=== PATIENT | female | born 1970 | race Caucasian/White ===

== ENCOUNTER 2017-02-12 06:42 | Emergency (ER) | payer OTHER ==
[~2017-02-12] VITALS: Ht 157.5 cm; Wt 66.2 kg
[2017-02-12] MEDS ORDERED: IPRATRPIUM/ALBUTEROL 0.5/2.5MG 3 ML NEBU. NEB ONE (07:15)
[2017-02-12] MEDS ORDERED: predniSONE 20 MG TABLET PO ONE (07:15)
--- NOTE | 2017-02-12 07:15 | PHYS DOC ---
Past Medical History Past Medical History: Asthma, Bronchitis Past Surgical History: Other Additional Past Surgical Histo: R. KNEE Additional Information: 1 PPD Alcohol Use: Occasionally Drug Use: None Adult General Chief Complaint Chief Complaint: SHORTNESS OF BREATH HPI HPI Patient is a 46 year old female who presents with cough, sob. Pt stated she had a fever on Friday, resolved on Friday and then developed a cough. No associated pain, reports she has "bronchitis" and would normally use an inhaler but is out because she recently moved here. Does not currently have PCP. She took an oral bronchodilator prior to arrival without relief. Review of Systems Review of Systems Constitutional: Denies chills [] Eyes: Denies change in visual acuity, redness, or eye pain [] HENT: Denies nasal congestion or sore throat [] Respiratory: per hpi Cardiovascular: Denies chest pain GI: Denies abdominal pain, nausea, vomiting, bloody stools or diarrhea [] : Denies dysuria or hematuria [] Musculoskeletal: Denies back pain or joint pain [] Integument: Denies rash or skin lesions [] Neurologic: Denies headache, focal weakness or sensory changes [] Current Medications Current Medications Current Medications Medications (Trade) Dose Ordered Sig/Asuncion Start Time Stop Time Status Last Admin Dose Admin Albuterol/ Ipratropium (Duoneb) 3 ml 1X ONCE 02/12/17 07:15 02/12/17 07:16 DC 02/12/17 07:40 3 ML Prednisone (Prednisone) 60 mg 1X ONCE 02/12/17 07:15 02/12/17 07:16 DC 02/12/17 07:17 60 MG Allergies Allergies Allergies Coded Allergies Type Severity Reaction Last Updated Verified No Known Drug Allergies 02/12/17 No Physical Exam Physical Exam Constitutional: Well developed, well nourished, no acute distress, non-toxic appearance. talks in full sentences HENT: Normocephalic, atraumatic, bilateral external ears normal, oropharynx moist, no oral exudates, nose normal. [] Eyes: PERRLA, EOMI, conjunctiva normal, no discharge. [] Neck: Normal range of motion, no tenderness, supple, no stridor. [] Cardiovascular:Heart rate slightly tachy with regular rhythm, no murmur [] Lungs & Thorax: Bilateral breath sounds , moderate air movement, insp/exp wheeze Abdomen: Bowel sounds normal, soft, no tenderness, no masses, no pulsatile masses. [] Skin: Warm, dry, no erythema, no rash. [] Back: No tenderness, no CVA tenderness. [] Extremities: No tenderness, no cyanosis, no clubbing, ROM intact, no edema, nontender Neurologic: Alert and oriented X 3, normal motor function, normal sensory function, no focal deficits noted. [] Psychologic: Affect normal, judgement normal, mood normal. [] Current Patient Data Vital Signs Vital Signs Date Time Temp Pulse Resp B/P (MAP) Pulse Ox O2 Delivery O2 Flow Rate FiO2 02/12/17 08:13 89 18 148/66 (93) 95 Room Air 02/12/17 06:55 98.2 98.2 EKG EKG [] Radiology/Procedures Radiology/Procedures Examination: 2 views of the right tibia and fibula History: History of fall down stairs, pain for 2 days Comparison: None available Findings: The alignment of the tibia and fibula grossly appears unremarkable. There is no obvious acute fracture identified. Impression: no acute osseous findings [] Course & Med Decision Making Course & Med Decision Making Pertinent Labs and Imaging studies reviewed. (See chart for details) pt given prednisone, duoneb breathing treatment, CXR performed. Pt feeling much improved, SOB resolved. CXR neg for pna. DC'd with 4 more days of prednisone and albuterol inhaler with spacer. Referral sheet given. Anabelle Disclaimer Anabelle Disclaimer This electronic medical record was generated, in whole or in part, using a voice recognition dictation system. Departure Departure Impression: Primary Impression: Bronchospasm with bronchitis, acute Disposition: HOME, SELF-CARE Condition: STABLE Referrals: NO PCP (PCP) Scripts Albuterol Sulfate (PROAIR HFA INHALER) 8.5 Gm Hfa.aer.ad 2 PUFF INH PRN Q6HRS Y for SHORTNESS OF BREATH, #1 INHALER 0 Refills with spacer Prov: MEAGAN TOBIAS MD 02/12/17 Prednisone (PREDNISONE) 50 Mg Tablet 1 TAB PO DAILY, #4 TAB starting tomorrow Prov: MEAGAN TOBIAS MD 02/12/17 MEAGAN TOBIAS MD February 12, 2017 07:15
--- NOTE | 2017-02-12 07:15 | RAD ---
Chest, 2 views, 02/12/2017: History: Cough and shortness of breath The heart size and pulmonary vascularity are normal. No pulmonary infiltrates are seen. There is no evidence of pleural fluid. IMPRESSION: No acute cardiopulmonary abnormality is detected.
[2017-02-12 08:13] VITALS: BP 148/66
[2017-02-12] MEDS ORDERED: PRED50TA PO (08:21)
[2017-02-12] MEDS ORDERED: PROAIR HFA8.5 GM INH (08:21)
== END 2017-02-12 08:30 | disposition home or self-care (01) ==
LOC: ER 06:42
DX: J20.9 Acute bronchitis, unspecified (principal); J45.909 Unspecified asthma, uncomplicated; F17.200 Nicotine dependence, unspecified, uncomplicated
CPT/HCPCS: 71020; 94250; 94640; 99284; J7512; J7620

== ENCOUNTER 2017-11-23 14:05 | Emergency (ER) | payer OTHER | END 2017-11-23 15:58 | disposition home or self-care (01) | LOC: ER 14:05 | DX: S52.021A Displaced fracture of olecranon process without intraarticular extension of right ulna, initial encounter for closed fracture (principal); J45.909 Unspecified asthma, uncomplicated; X58.XXXA Exposure to other specified factors, initial encounter; Y93.89 Activity, other specified; Y92.89 Other specified places as the place of occurrence of the external cause; Y99.8 Other external cause status | CPT/HCPCS: 29105; 73080; 99284-25 ==

== ENCOUNTER 2019-03-11 01:37 | Emergency (ER) | payer SELFPAY ==
[~2019-03-11] VITALS: Ht 157.5 cm; Wt 68.0 kg
[~2019-03-11 01:37] MED LIST: ALBU2.5V8 INH; PRED50TA PO
[2019-03-11 01:53] LABS: BASO % 0 % (0-3); EOS % 0 % (0-3); HEMATOCRIT 46.4 % (36.0-47.0); HEMOGLOBIN 15.5 g/dL (12.0-15.5); LYMPH # 1.9 x10^3/uL (1.0-4.8); LYMPH % 13 % (24-48); MEAN CORPUSCULAR HEMOGLOBIN 30 pg (25-35); MEAN CORPUSCULAR HGB CONC 33 g/dL (31-37); MEAN CORPUSCULAR VOLUME 90 fL (79-100); MONO # 0.9 x10^3/uL (0.0-1.1); MONO % 7 % (0-9); NEUT # 11.6 x10^3uL (1.8-7.7); NEUT % 80 % (31-73); PLATELET COUNT 326 x10^3/uL (140-400); RED BLOOD COUNT 5.13 x10^6/uL (3.50-5.40); RED CELL DISTRIBUTION WIDTH 14.1 % (11.5-14.5); WHITE BLOOD COUNT 14.5 x10^3/uL (4.0-11.0)
[2019-03-11] MEDS ORDERED: methylPREDNISolone SOD SUCC PF 125 MG/2 ML VIAL. IV ONE (02:00)
[2019-03-11] MEDS ORDERED: ALBUTEROL SULFATE 2.5 MG/3 ML NEBU. CONT NEB ONE (02:00)
--- NOTE | 2019-03-11 02:10 | PHYS DOC ---
Past Medical History Past Medical History: Asthma, Bronchitis Past Surgical History: Other Additional Past Surgical Histo: R. KNEE Alcohol Use: Rarely Drug Use: None Adult General Chief Complaint Chief Complaint: SHORTNESS OF BREATH [facility] HPI Patient is a 48 year old female presenting with shortness of breath she's had it for 3 weeks she took antibiotics she try prednisone but she didn't finish the prescription she didn't think it was helping her. She stopped smoking 2 weeks ago when she got sick she's been coughing up yellow mucus no fever that she knows of shortness of breath is worse with coughing and trying to exert herself and feels tight when she coughs. She is using her inhalers with minimal relief Review of Systems Review of Systems Constitutional: Denies fever or chills [] Eyes: Denies change in visual acuity, redness, or eye pain [] Cardiovascular: No additional information not addressed in HPI [] \ Musculoskeletal: Denies back pain or joint pain [] Integument: Denies rash or skin lesions [] Neurologic: Denies headache, focal weakness or sensory changes [] Endocrine: Denies polyuria or polydipsia [] All other systems were reviewed and found to be within normal limits, except as documented in this note. Current Medications Current Medications Current Medications Medications (Trade) Dose Ordered Sig/Asuncion Start Time Stop Time Status Last Admin Dose Admin Albuterol Sulfate (Ventolin Neb Soln) 10 mg 1X ONCE 03/11/19 02:00 03/11/19 02:01 DC 03/11/19 01:55 10 MG Methylprednisolone Sodium Succinate (SOLU-Medrol 125MG VIAL) 125 mg 1X ONCE 03/11/19 02:00 03/11/19 02:01 DC 03/11/19 02:06 125 MG Allergies Allergies Allergies Coded Allergies Type Severity Reaction Last Updated Verified No Known Drug Allergies 02/12/17 No Physical Exam Physical Exam Constitutional: Well developed, well nourished, mild distress, non-toxic appearance. [] HENT: Normocephalic, atraumatic, bilateral external ears normal, oropharynx moist, no oral exudates, nose normal. [] Eyes: PERRLA, EOMI, conjunctiva normal, no discharge. [] Neck: Normal range of motion, no tenderness, supple, no stridor. [] Cardiovascular:Heart rate regular rhythm, no murmur [] Lungs & Thorax: wheezing noted b/l reactive cough, mild increasee in respiratoy effort with talking. Abdomen: Bowel sounds normal, soft, no tenderness, no masses, no pulsatile masses. [] Skin: Warm, dry, no erythema, no rash. [] Back: No tenderness, no CVA tenderness. [] Extremities: No tenderness, no cyanosis, no clubbing, ROM intact, no edema. [] Neurologic: Alert and oriented X 3, normal motor function, normal sensory functi on, no focal deficits noted. [] Psychologic: Affect normal, judgement normal, mood normal. [] Current Patient Data Vital Signs Vital Signs Date Time Temp Pulse Resp B/P (MAP) Pulse Ox O2 Delivery O2 Flow Rate FiO2 03/11/19 01:59 88 Room Air 03/11/19 01:40 97.9 83 26 184/116 (138) 97.9 Lab Values Laboratory Tests Test 03/11/19 01:45 White Blood Count 14.5 x10^3/uL (4.0-11.0) H Red Blood Count 5.13 x10^6/uL (3.50-5.40) Hemoglobin 15.5 g/dL (12.0-15.5) Hematocrit 46.4 % (36.0-47.0) Mean Corpuscular Volume 90 fL (79-100) Mean Corpuscular Hemoglobin 30 pg (25-35) Mean Corpuscular Hemoglobin Concent 33 g/dL (31-37) Red Cell Distribution Width 14.1 % (11.5-14.5) Platelet Count 326 x10^3/uL (140-400) Neutrophils (%) (Auto) 80 % (31-73) H Lymphocytes (%) (Auto) 13 % (24-48) L Monocytes (%) (Auto) 7 % (0-9) Eosinophils (%) (Auto) 0 % (0-3) Basophils (%) (Auto) 0 % (0-3) Neutrophils # (Auto) 11.6 x10^3uL (1.8-7.7) H Lymphocytes # (Auto) 1.9 x10^3/uL (1.0-4.8) Monocytes # (Auto) 0.9 x10^3/uL (0.0-1.1) Eosinophils # (Auto) 0.0 x10^3/uL (0.0-0.7) Basophils # (Auto) 0.0 x10^3/uL (0.0-0.2) Sodium Level 139 mmol/L (136-145) Potassium Level 4.2 mmol/L (3.5-5.1) Chloride Level 101 mmol/L (98-107) Carbon Dioxide Level 29 mmol/L (21-32) Anion Gap 9 (6-14) Blood Urea Nitrogen 15 mg/dL (7-20) Creatinine 1.0 mg/dL (0.6-1.0) Estimated GFR (Cockcroft-Gault) 58.7 BUN/Creatinine Ratio 15 (6-20) Glucose Level 113 mg/dL (70-99) H Calcium Level 9.6 mg/dL (8.5-10.1) Total Bilirubin 0.2 mg/dL (0.2-1.0) Aspartate Amino Transferase (AST) 11 U/L (15-37) L Alanine Aminotransferase (ALT) 21 U/L (14-59) Alkaline Phosphatase 76 U/L (46-116) Troponin I Quantitative < 0.017 ng/mL (0.000-0.055) GJ-Mya-X-Type Natriuretic Peptide 173 pg/mL (0-124) H Total Protein 8.0 g/dL (6.4-8.2) Albumin 3.6 g/dL (3.4-5.0) Albumin/Globulin Ratio 0.8 (1.0-1.7) L Laboratory Tests 03/11/19 01:45 Laboratory Tests 03/11/19 01:45 EKG EKG []Normal sinus rate 70 no acute ischemic changes noted interpreted by me the time of encounter. Nonspecific changes anteriorly this could be lead placement Radiology/Procedures Radiology/Procedures [] Impressions: cxr atelec or infiltrate left lung base Course & Med Decision Making Course & Med Decision Making Pertinent Labs and Imaging studies reviewed. (See chart for details) []48-year-old female with a history of smoking 20 year smoker known bronchitis does not have a primary doctor presenting with shortness of breath found to be wheezing on examination with reactive cough room air sat was borderline between 89 and 92 prior to treatment after nebulizer treatment on reevaluation it was 93-95% she actually sounded much better but when she was talking to me she became still somewhat short of breath with prolonged 6. I recommended admission she cannot stay because she has to go to her sister's tomorrow. She is sort of borderline I did ask her to stay so she will sign out AGAINST MEDICAL ADVICE she understands the risk of leaving up to and including return precautions discussed advised to come back at any point she was given the below prescriptions for treatment of presumed bronchitis flare. Noted the chest x-ray finding this could be atelectasis but we will cover with doxycycline just in case Panterabaldemar Disclaimer Dragbaldemar Disclaimer This electronic medical record was generated, in whole or in part, using a voice recognition dictation system. Departure Departure Impression: Primary Impression: Bronchospasm with bronchitis, acute Disposition: AGAINST MEDICAL ADVICE Condition: IMPROVED Referrals: NO PCP (PCP) Scripts Guaifenesin/Codeine Phosphate (GUAIFENESIN-CODEINE SYRUP) 118 Ml Liquid 5 ML PO Q6HRS PRN for COUGH, #120 ML Prov: CLIFTON MORTON MD 03/11/19 Doxycycline Hyclate (DOXYCYCLINE HYCLATE) 100 Mg Tablet 1 TAB PO BID, #14 TAB Prov: CLIFTON MORTON MD 03/11/19 Albuterol Sulfate (PROAIR HFA INHALER) 8.5 Gm Hfa.aer.ad 1 PUFF INH PRN Q6HRS PRN for SHORTNESS OF BREATH for 5 Days, #1 INHALER 0 Refil ls Prov: CLIFTON MORTON MD 03/11/19 Prednisone (PREDNISONE) 50 Mg Tablet 1 TAB PO DAILY, #5 TAB Prov: CLIFTON MORTON MD 03/11/19 CLIFTON MORTON MD Mar 11, 2019 02:10
[2019-03-11 02:16] LABS: CALCIUM 9.6 mg/dL (8.5-10.1); GFR 58.7; POTASSIUM 4.2 mmol/L (3.5-5.1)
[2019-03-11 02:25] LABS: ALBUMIN 3.6 g/dL (3.4-5.0); ALBUMIN/GLOBULIN RATIO 0.8 (1.0-1.7); TOTAL BILIRUBIN 0.2 mg/dL (0.2-1.0)
[2019-03-11] MEDS ORDERED: PRED50TA PO (03:02)
[2019-03-11] MEDS ORDERED: GUAI118L13 PO (03:02)
[2019-03-11] MEDS ORDERED: DOXY100T PO (03:02)
[2019-03-11] MEDS ORDERED: ALBU2.5V8 INH (03:02)
--- NOTE | 2019-03-11 03:05 | RAD ---
Chest AP portable at 0130: Reason for examination: Short of breath. The heart size is normal. Mediastinum is unremarkable. Lung najera show some mild atelectasis or infiltrate at the left lung base. No acute bony abnormalities are seen. Impression: Mild atelectasis or infiltrate at the left lung base. Electronically signed by: Latanya Saucedo MD (03/11/2019 3:02 AM) [facility]
[2019-03-11 03:40] VITALS: BP 154/82
--- NOTE | 2019-03-11 06:24 | EKG ---
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
== END 2019-03-11 03:45 | disposition left against medical advice (07) ==
LOC: ER 01:37
DX: J20.9 Acute bronchitis, unspecified (principal); J45.909 Unspecified asthma, uncomplicated; Z87.891 Personal history of nicotine dependence
CPT/HCPCS: 36415; 71045; 80053; 83880; 84484; 85025; 93005; 94644; 96374; 99285; J2930; J7613

== ENCOUNTER 2019-09-08 06:37 | Emergency (ER) | payer BC ==
[~2019-09-08] VITALS: Ht 157.5 cm; Wt 62.1 kg
[~2019-09-08 06:37] MED LIST changes: +DOXY100T PO; +GUAI118L13 PO
[2019-09-08 07:04] VITALS: BP 161/98
--- NOTE | 2019-09-08 07:57 | PHYS DOC ---
Past Medical History Past Medical History: Bronchitis Past Surgical History: Other Additional Past Surgical Histo: R. KNEE Alcohol Use: Rarely Drug Use: None Adult General Chief Complaint Chief Complaint: FOOT INJURY PAIN HPI HPI Patient is a 48-year-old female who presents with complaint of left foot pain. P atient states that pain has been present for the last 4 days. She states that she had been walking and twisted her foot and has had pain ever since. She rates that pain at a 10 out of 10. She denies any other injuries. She points to the outside of the foot overlying the fourth and fifth metatarsals as the area of greatest pain.[] Review of Systems Review of Systems Constitutional: Denies fever or chills [] Respiratory: Denies cough or shortness of breath [] Cardiovascular: No additional information not addressed in HPI [] Musculoskeletal: Positive left foot pain [] Integument: Denies rash or skin lesions [] Neurologic: Denies headache, focal weakness or sensory changes [] Allergies Allergies Allergies Coded Allergies Type Severity Reaction Last Updated Verified No Known Drug Allergies 02/12/17 No Physical Exam Physical Exam Constitutional: Well developed, well nourished, no acute distress, non-toxic appearance. [] Cardiovascular: Regular rate and rhythm[] Lungs & Thorax: Bilateral breath sounds clear to auscultation [] Skin: Warm, dry, no erythema, no rash. [] Extremities: Examination of left foot demonstrates tenderness to palpation without soft tissue swelling or obvious deformity at the base of the fifth metatarsal. [] Neurologic: Alert and oriented X 3, no focal deficits noted. [] Current Patient Data Vital Signs Vital Signs Date Time Temp Pulse Resp B/P (MAP) Pulse Ox O2 Delivery O2 Flow Rate FiO2 09/08/19 07:04 98.7 73 18 161/98 (119) 98 Room Air 98.7 EKG EKG [] Radiology/Procedures Radiology/Procedures [] Impressions: X-ray of left foot demonstrates nondisplaced fifth metatarsal fracture Course & Med Decision Making Course & Med Decision Making Pertinent Labs and Imaging studies reviewed. (See chart for details) [] Dragon Disclaimer Dragon Disclaimer This electronic medical record was generated, in whole or in part, using a voice recognition dictation system. Departure Departure Impression: Primary Impression: Fracture of fifth metatarsal bone of left foot Additional Impression: Bronchospasm with bronchitis, acute Disposition: 01 HOME, SELF-CARE Condition: STABLE Referrals: NO PCP (PCP) SALAS ESPARZA MD Patient Instructions: Metatarsal Fracture, Undisplaced Additional Instructions: Wear postop shoe and use crutches as directed. Call to schedule follow-up appointment with Dr. Esparza in the next week. Scripts Hydrocodone/Apap 5-325 (NORCO 5-325 TABLET) 1 Each Tablet 1-2 EACH PO PRN Q6HRS PRN for PAIN, #15 as needed for pain Prov: JUAN CANTU Jr., DO 09/08/19 Problem Qualifiers Primary Impression: Fracture of fifth metatarsal bone of left foot Encounter type: initial encounter Fracture type: closed Fracture alignment: nondisplaced Qualified Codes: S92.355A - Nondisplaced fracture of fifth metatarsal bone, left foot, initial encounter for closed fracture JUAN CANTU Jr., DO Sep 08, 2019 07:57
[2019-09-08] MEDS ORDERED: HYDR-3164 PO (09:30)
--- NOTE | 2019-09-08 09:47 | RAD ---
Examination: FOOT LEFT 3V History: Lateral left foot pain Comparison/Correlation: None Findings: A total of 3 images of the foot were obtained. Transverse fracture involving the fifth metatarsal bone at the proximal metaphyseal region is present without displacement. Joint spaces are unremarkable. No significant degenerative change. Soft tissues unremarkable. Impression: Fifth metatarsal nondisplaced fracture. Electronically signed by: Frank Rico MD (09/08/2019 9:45 AM) [facility]
== END 2019-09-08 09:50 | disposition home or self-care (01) ==
LOC: ER 06:37
DX: S92.355A Nondisplaced fracture of fifth metatarsal bone, left foot, initial encounter for closed fracture (principal); J20.9 Acute bronchitis, unspecified; X50.1XXA Overexertion from prolonged static or awkward postures, initial encounter; Y93.01 Activity, walking, marching and hiking; Y92.89 Other specified places as the place of occurrence of the external cause; Y99.8 Other external cause status
CPT/HCPCS: 73630; 99284

== ENCOUNTER 2021-04-19 16:25 | Emergency (ER) | payer SELFPAY ==
[~2021-04-19] VITALS: Ht 157.5 cm; Wt 76.4 kg
[~2021-04-19 16:25] MED LIST changes: +HYDR-3164 PO
[2021-04-19 16:35] VITALS: BP 181/89
[2021-04-19] MEDS ORDERED: IPRATRPIUM/ALBUTEROL 0.5/2.5MG 3 ML NEBU. NEB ONE (18:45)
[2021-04-19] MEDS ORDERED: methylPREDNISolone SOD SUCC PF 125 MG/2 ML VIAL. IM ONE (18:45)
[2021-04-19] MEDS ORDERED: PRED50TA PO (18:47)
--- NOTE | 2021-04-19 18:48 | PHYS DOC ---
Past Medical History Past Medical History: Bronchitis Past Surgical History: Other Additional Past Surgical Histo: R. KNEE Smoking Status: Current Every Day Smoker Alcohol Use: Rarely Drug Use: None General Adult EDM: Chief Complaint: SHORTNESS OF BREATH HPI: HPI: Patient is a 50 year old female who is a smoker with a history of bronchitis presents with a chief complaint of shortness of breath. Patient states she has had shortness of breath for the last 2 days. Patient states shortness of breath is worse with exertion. Patient denies any associated cough fever or chills. Patient states symptoms feel like her bronchitis. Patient is oxygen saturation is 99% on room air she is afebrile. Patient denies any runny nose stuffy nose or cough. Patient has not received her Covid vaccination. Review of Systems: Review of Systems: Review of systems: Constitutional symptoms- No fever, no chills. Eyes- No Discharge, No Visual Loss Respiratory symptoms- Positive shortness of breath, No wheezing, Positive Dyspnea on Exertion Cardiovascular Systems; No chest pain, No Palpitations, No syncope Gastrointestinal symptoms: NO abdominal pain, no nausea, no vomiting or diarrhea. Genitourinary symptoms: No dysuria. Musculoskeletal symptoms: No back pain No extremity pain. NEUROLOGICAL Symptoms: No headache, no generalized weakness; No focal Weakness Skin: No rash. Heart Score: C/O Chest Pain: N/A Risk Factors: Risk Factors: DM, Current or recent (<one month) smoker, HTN, HLP, family history of CAD, obesity. Risk Scores: Score 0 - 3: 2.5% MACE over next 6 weeks - Discharge Home Score 4 - 6: 20.3% MACE over next 6 weeks - Admit for Clinical Observation Score 7 - 10: 72.7% MACE over next 6 weeks - Early Invasive Strategies Allergies: Allergies: Allergies Coded Allergies Type Severity Reaction Last Updated Verified No Known Drug Allergies 10/21/19 No Physical Exam: PE: General: alert, no acute distress. Skin: warm, dry and intact, no erythema, no rash. HENT: bilateral external ears normal, oropharynx moist, nose normal. Head:: Normocephalic, atraumatic. Neck: Trachea midline. Eyes: EOMI, Normal conjunctiva, No drainage CARDIOVASCULAR: Regular rate and rhythm RESPIRATORY: No respiratory distress Back: Full range of motion. MUSCULOSKELETAL: Full range of motion of bilateral upper and lower extremities. No lower extremity edema GASTROINTESTINAL: Abdomen soft without rebound or guarding. NEUROLOGICAL: Alert and noted to person, place and time. No neurological deficits observed Psychiatric: Cooperative. Normal judgment Current Patient Data: Vital Signs: Vital Signs Date Time Temp Pulse Resp B/P (MAP) Pulse Ox O2 Delivery O2 Flow Rate FiO2 04/19/21 16:35 98.8 89 24 96 98.8 EKG: EKG: [] Radiology/Procedures: Radiology/Procedures: []AP chest. HISTORY: Short of breath AP view was taken of the chest. There is no pneumothorax or pleural effusion. Heart is normal in size. Lungs are free of infiltrates. IMPRESSION: 1. No acute infiltrates. Electronically signed by: Dequan Sorto MD (04/19/2021 7:06 PM) [facility] Course & Med Decision Making: Course & Med Decision Making Pertinent Labs and Imaging studies reviewed. (See chart for details) []Treated with solumedrol and duoneb. Xray negative. Rx prednisone. Anabelle Disclaimer: Anabelle Disclaimer: This electronic medical record was generated, in whole or in part, using a voice recognition dictation system. Departure Departure Impression: Primary Impression: Bronchospasm with bronchitis, acute Disposition: HOME / SELF CARE / HOMELESS Referrals: NO PCP (PCP) Patient Instructions: Acute Bronchitis Scripts Prednisone (PREDNISONE) 50 Mg Tablet 1 TAB PO DAILY, #5 TAB Prov: ETHAN BOLDEN DO 04/19/21 ETHAN BOLDEN DO Apr 19, 2021 18:48
--- NOTE | 2021-04-19 19:08 | RAD ---
AP chest. HISTORY: Short of breath AP view was taken of the chest. There is no pneumothorax or pleural effusion. Heart is normal in size . Lungs are free of infiltrates. IMPRESSION: 1. No acute infiltrates. Electronically signed by: Dequan Sorto MD (04/19/2021 7:06 PM) [facility]
== END 2021-04-19 19:33 | disposition home or self-care (01) ==
LOC: ER 16:25
DX: J20.9 Acute bronchitis, unspecified (principal); F17.200 Nicotine dependence, unspecified, uncomplicated
CPT/HCPCS: 71045; 94640; 96372; 99283; J2930

== ENCOUNTER 2022-02-04 20:59 | Emergency (ER) | payer OTHER ==
[~2022-02-04] VITALS: Ht 157.5 cm; Wt 85.9 kg
[2022-02-04 21:00] VITALS: BP 156/73
--- NOTE | 2022-02-04 21:37 | PHYS DOC ---
Past Medical History Past Medical History: Bronchitis Past Surgical History: Other Additional Past Surgical Histo: R. KNEE Smoking Status: Current Every Day Smoker Alcohol Use: Rarely Drug Use: None Adult General Chief Complaint Chief Complaint: LOWEREXTREMITY INJURY HPI HPI Patient is a 51 year old female present emergency department for evaluation of right foot pain for the past 2 days that she says she stepped on her right foot awkwardly 2 days ago and felt a pain but has continued to walk on it but she says her pain is getting worse. She denies any ankle or other leg pain and no weakness numbness or tingling. Review of Systems Review of Systems Constitutional: Denies fever or chills [] Musculoskeletal: Positive for right foot joint pain Integument: Denies rash or skin lesions [] Neurologic: Denies headache, focal weakness or sensory changes [] All other systems were reviewed and found to be within normal limits, except as documented in this note. Allergies Allergies Allergies Coded Allergies Type Severity Reaction Last Updated Verified No Known Drug Allergies 10/21/19 No Physical Exam Physical Exam Constitutional: Well developed, well nourished, no acute distress, non-toxic appearance. [] Skin: Warm, dry, no erythema, no rash. [] Extremities: Right fifth metatarsal is tender to palpation and there is some swelling noted but no erythema warmth or induration. Neurologic: Alert and oriented X 3, normal motor function, normal sensory function, no focal deficits noted. [] Current Patient Data Vital Signs Vital Signs Date Time Temp Pulse Resp B/P (MAP) Pulse Ox O2 Delivery O2 Flow Rate FiO2 02/04/22 21:00 98.4 100 18 156/73 (100) 95 Room Air 98.4 EKG EKG [] Radiology/Procedures Radiology/Procedures [] Course & Med Decision Making Course & Med Decision Making I will check an x-ray and I offered to give her something for pain but she said her pain is not significant and does not want anything at this time. Patient's x-ray was read as possible proximal fourth metatarsal fracture. She does have pain and swelling at the site. Given her presenting symptoms she will be placed in a boot and told to follow with orthopedics. Patient is neurovascular intact pre and post boot application. She will be discharged in stable condition and told to follow-up and come back to emergency department sooner with any worsening pain neurologic changes with general concerns. Patient aware and agreeable with plan and verbalized understanding of the above instructions. Dragon Disclaimer Dragon Disclaimer This electronic medical record was generated, in whole or in part, using a voice recognition dictation system. Departure Departure Impression: Primary Impression: Fracture of metatarsal of right foot, closed Disposition: HOME / SELF CARE / HOMELESS Condition: STABLE Referrals: NO PCP (PCP) OCTAVIO IVERSON II, MD Patient Instructions: Metatarsal Fracture, Undisplaced Additional Instructions: Follow with ortho. Come back with any concerns. Thank you! Scripts Hydrocodone Bit/Acetaminophen (HYDROCODONE-APAP 5-325 ) 1 Tab Tablet 1 TAB PO PRN Q6HRS PRN for PAIN, #14 TAB 0 Refills Prov: SARAH COLON DO 02/04/22 Problem Qualifiers Primary Impression: Fracture of metatarsal of right foot, closed Encounter type: initial encounter Metatarsal bone: fourth Fracture alignment: nondisplaced Qualified Codes: S92.344A - Nondisplaced fracture of fourth metatarsal bone, right foot, initial encounter for closed fracture SARAH COLON DO February 04, 2022 21:37
[2022-02-04] MEDS ORDERED: HYDR-2761 PO (23:50)
--- NOTE | 2022-02-05 12:23 | RAD ---
EXAM: XR FOOT_RIGHT 3 VIEWS 02/04/2022 9:36 PM CLINICAL INDICATION: Pain fifth metatarsal after injury 2 days ago COMPARISON: None TECHNIQUE: AP, oblique, and lateral views of the right foot FINDINGS: No acute fracture of the fifth metatarsal. Questionable nondisplaced fracture at the base of the fourth metatarsal seen on oblique view. Alignment is normal. Joint spaces are maintained. No s oft tissue abnormality. IMPRESSION: 1. No acute fracture of the fifth metatarsal. 2. Questionable nondisplaced fracture at the fourth metatarsal base versus artifact. Correlate with p oint tenderness. Electronically signed by: Alice Erickson MD (02/04/2022 10:50 PM) [facility]
== END 2022-02-05 | disposition home or self-care (01) ==
LOC: ER 20:59
DX: S92.344A Nondisplaced fracture of fourth metatarsal bone, right foot, initial encounter for closed fracture (principal); F17.200 Nicotine dependence, unspecified, uncomplicated; W22.8XXA Striking against or struck by other objects, initial encounter; Y93.89 Activity, other specified; Y92.89 Other specified places as the place of occurrence of the external cause; Y99.8 Other external cause status
CPT/HCPCS: 73630; 99283

== ENCOUNTER → 2022-02-11 | Outpatient (CLI) | payer OTHER ==
[2022-02-04 21:00] VITALS: BP 156/73
[~2022-02-11] MED LIST changes: +HYDR-2761 PO
--- NOTE | 2022-02-12 07:45 | KCIC ---
PA and lateral chest. HISTORY: Reactive airway disease, J 44.909 PA and lateral views of the chest were compared with a study from March 2021. Lungs are free of infilt rates. Heart is normal in size. There is no pleural effusion. IMPRESSION: 1. No acute chest disease. Electronically signed by: Dequan Sorto MD (02/11/2022 10:53 AM) [id number]
== END ==
LOC: KCIC 09:07
PROVIDERS: ATTEND Nurse Practitioner Family
DX: J45.909 Unspecified asthma, uncomplicated (principal); R06.02 Shortness of breath; F17.200 Nicotine dependence, unspecified, uncomplicated
CPT/HCPCS: 71046